=== PATIENT | male | born 1965 | race Caucasian/White ===

== ENCOUNTER → 2022-02-16 08:02 | Outpatient (BNVA) | payer OTHER, SELFPAY | PROVIDERS: Visit Provider Psychiatry & Neurology Neurology | DX: G44.309 Post-traumatic headache, unspecified, not intractable (principal); G47.00 Insomnia, unspecified; R42 Dizziness and giddiness; H93.19 Tinnitus, unspecified ear | CPT/HCPCS: 99202 ==

== ENCOUNTER → 2022-03-21 09:01 | Outpatient (BNVA) | payer OTHER, SELFPAY | PROVIDERS: Visit Provider Nurse Practitioner Family | DX: G47.00 Insomnia, unspecified (principal); G44.309 Post-traumatic headache, unspecified, not intractable; H93.19 Tinnitus, unspecified ear; R42 Dizziness and giddiness | CPT/HCPCS: 99212 ==

== ENCOUNTER → 2022-05-25 09:08 | Outpatient (BNVA) | payer OTHER, SELFPAY | PROVIDERS: Visit Provider Nurse Practitioner Family | DX: G44.309 Post-traumatic headache, unspecified, not intractable (principal); G47.00 Insomnia, unspecified; H93.19 Tinnitus, unspecified ear | CPT/HCPCS: 99212 ==

== ENCOUNTER → 2022-07-27 11:06 | Outpatient (BNVA) | payer OTHER, SELFPAY | PROVIDERS: Visit Provider Nurse Practitioner Family | DX: G47.00 Insomnia, unspecified (principal); H93.19 Tinnitus, unspecified ear; R42 Dizziness and giddiness; G44.309 Post-traumatic headache, unspecified, not intractable | CPT/HCPCS: 99212 ==

== ENCOUNTER → 2022-12-22 14:32 | Outpatient (BNVA) | payer OTHER, SELFPAY | PROVIDERS: Visit Provider Nurse Practitioner Family | DX: G47.00 Insomnia, unspecified (principal); G44.309 Post-traumatic headache, unspecified, not intractable; H93.19 Tinnitus, unspecified ear; R42 Dizziness and giddiness | CPT/HCPCS: 99212 ==

== ENCOUNTER → 2023-03-01 10:47 | Outpatient (BNVA) | payer OTHER, SELFPAY | PROVIDERS: Visit Provider Nurse Practitioner Family | DX: G44.309 Post-traumatic headache, unspecified, not intractable (principal); G47.00 Insomnia, unspecified; H93.19 Tinnitus, unspecified ear; R42 Dizziness and giddiness | CPT/HCPCS: 99212 ==

== ENCOUNTER 2023-05-18 11:26 | Outpatient (AMB) | payer OTHER, SELFPAY ==
--- NOTE | 2023-05-18 11:32 | MHC.OFFVIS ---
Intake Vital Signs 05/18/23 11:34 Weight 138 lb 4 oz BP 142/86 H Blood Pressure Location Lt brachial Position Sitting Pulse 80 Pulse Source Pulse Oximeter Pulse Oximetry (%) 98 Oxygen Delivery Method Room Air Intake Visit Reasons: 2 mo f/u for concussion - Confirmed Intake Note: F/U Concussion [employer] Required: No Allergies Sulfa (Sulfonamide Antibiotics) Allergy (Mild, Verified 05/18/23 11:33) Unknown HPI HPI Comments History of Present Illness Details 58 y/o male patient presents for follow up of post concussion syndrome. Pt reports his headache and insomnia has not been better. He sleeps a little bit longer with amitriptyline 75 mg but feels exhausted and tired all day long. He is on magnesium 400 mg qHS and vitamin B2 400 mg daily for headache prevention. Pt reports constant, daily headache, front to back, pounding headache, associated with light sensitivity and neck pain. He was evaluated by pain management and plans to have injection, but not approved yet. Pt is on baclofen 10 mg qHS for neck muscle tightness. Pt reduced OTC medication use to treat headache. 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 ? He does not work now. [facility], LAT[facility] Surgical History Hx of removal of cyst Family History Mother No problems noted. Father No problems noted. Social History (Updated 05/18/23 @ 11:34 by Deja Galloway [facility]) Household Members: Spouse Alcohol intake: never Patient Tobacco Use Status: Never used Tobacco Review of Systems Const All systems reviewed & are unremarkable except as noted in HPI and below Physical Exam Vital Signs: Last Vital Signs Pulse 80 05/18/23 11:34 BP 142/86 H 05/18/23 11:34 Pulse Ox 98 05/18/23 11:34 Oxygen Delivery Method Room Air 05/18/23 11:34 Const General: cooperative, healthy appearing, comfortable and no acute distress Nutritional Appearance: average body habitus Orientation/consciousness: patient oriented x3 Neck Other: mild tightness Neck: Yes full ROM Resp Effort & Inspection: normal respiratory effort and able to speak in complete sentences Neuro General: patient oriented x3, gait normal, tone normal, moves all extremities and no focal motor deficits Cranial nerves: Yes Bilaterally intact EOM present, Yes Nystagmus not present, Yes Normal facial strength present, Yes Midline tongue present, Yes Ability to bilaterally rotate head present and Yes Ability to bilaterally elevate shoulders present Cognition (Neuro): normal cognition Gait exam (Neuro): Normal gait present Deep tendon reflexes (DTR's): Right triceps reflex intensity grade: 1+, Left triceps reflex intensity grade: 1+, Rt Biceps (C5, C6): 1+, Left biceps reflex intensity grade: 1+, Right brachioradialis reflex intensity grade: 1+, Left brachioradialis reflex intensity grade: 1+, Right patellar reflex intensity grade: 1+ and Left patellar reflex intensity grade: 1+ Psych Appearance: grossly normal Speech and movement: Normal speech and movement present Assessment & Plan Assessment & Plan (1) Insomnia: Code(s): G47.00 - Insomnia, unspecified (2) Tinnitus: Code(s): H93.19 - Tinnitus, unspecified ear (3) Vertigo: Code(s): R42 - Dizziness and giddiness (4) Post-concussion headache: Code(s): G44.309 - Post-traumatic headache, unspecified, not intractable Plan Advised patient to continue to take baclofen 10 mg qHS for neck muscle tightness and pain. Decrease amitriptyline to 50 mg qHS for headache prevention and promote sleep. Advised patient to use melatonin 3 mg along with amitriptyline. Coneinue to take vitamin B2 400 mg q daily and magnesium 400 mg qHS. Start propranolol 10 mg BID for headache prevention and increase PO fluid. Encouraged patient to write headache log and limit OTC medication to prevent rebound headache. Advised patient to try sumatriptan 100 mg at onset of headache as needed. Continue to do physical therapy and tinnitus rehab. Continue to follow up with pain management. Disability, FMLA application filled out. Medications: New propranolol 10 mg PO BID 60 tabs 1RF 30 days amitriptyline 50 mg PO BEDTIME 30 tabs 1RF 30 days Changed From sumatriptan succinate take 1 tab at onset of headache; if no relief, may repeat 1 tab after at least 2 hrs; max = 2 tabs/24 hrs PO 30 days 14 tabs 1RF To sumatriptan succinate take 1 tab at onset of headache; if no relief, may repeat 1 tab after at least 2 hrs; max = 2 tabs/24 hrs PO 14 tabs 1RF 30 days Discontinued amitriptyline Discontinued Reason: Doctor's Order 75 mg PO BEDTIME 30 days 30 tabs 2RF Coding Level of Care Code Est Pt Level 4 (05048) Diagnoses Insomnia G47.00 Tinnitus H93.19 Vertigo R42 Post-concussion headache G44.309
[2023-05-18 11:34] VITALS: BP 142/86; PULSE 80; O2SAT 98
== END 2023-05-18 12:05 | disposition home or self-care (01) ==
PROVIDERS: Visit Provider Nurse Practitioner Family
DX: G47.00 Insomnia, unspecified (principal); H93.19 Tinnitus, unspecified ear; R42 Dizziness and giddiness; G44.309 Post-traumatic headache, unspecified, not intractable
CPT/HCPCS: 99214

== ENCOUNTER → 2023-05-18 11:26 | Outpatient (BNVA) | payer OTHER, SELFPAY | PROVIDERS: Visit Provider Nurse Practitioner Family | DX: G44.309 Post-traumatic headache, unspecified, not intractable (principal); G47.00 Insomnia, unspecified; H93.19 Tinnitus, unspecified ear; R42 Dizziness and giddiness; Z79.899 Other long term (current) drug therapy | CPT/HCPCS: 99212 ==

== ENCOUNTER 2023-07-12 15:32 | Outpatient (AMB) | payer OTHER, SELFPAY ==
--- NOTE | 2023-07-12 15:40 | A.OFFVIS_ITS ---
Intake Vital Signs 07/12/23 15:41 Height 5 ft 2 in Weight 141 lb 2 oz BMI 25.8 BP 176/82 H Blood Pressure Location Rt brachial Position Sitting Respiration 16 Pulse 101 H Pulse Source Pulse Oximeter Pulse Oximetry (%) 97 Oxygen Delivery Method Room Air Intake Visit Reasons: 2m follow up concussion Intake Note: Pt is here for a 2 month follow up for a concussion. He reports he is discouraged with the lack of improvement in symptoms. The dizziness and ringing of the ears have worsened. His headaches are more constant. He discontinued his HTN meds due to diarrhea. Denies nausea or vomiting. Allergies Sulfa (Sulfonamide Antibiotics) Allergy (Mild, Verified 07/12/23 15:40) Unknown HPI HPI Comments History of Present Illness Details 58 y/o male patient presents for follow up of post concussion syndrome. Pt reports his headache and insomnia has not been better. He can fall sleep a with amitriptyline 50 mg and melatonin 3 mg but still wakes up around 2 am and it is hard to go back to sleep. Pt reports constant, daily headache, front to back, pounding headache, associated with light sensitivity and neck pain. He usually getting bad headache mid day, and bright light triggers headache. He is on magnesium 400 mg qHS and vitamin B2 400 mg daily for headache prevention. He tried propranolol but it caused diarrhea and he stopped taking it. He was evaluated by pain management and plans to have injection, but it still pending. Pt is on baclofen 10 mg qHS for neck muscle tightness. Pt reduced OTC medication use to treat headache. 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 ? PFSH Surgical History Hx of removal of cyst Family History Mother No problems noted. Father No problems noted. Social History Household Members: Spouse Alcohol intake: never Patient Tobacco Use Status: Never used Tobacco Review of Systems Const All systems reviewed & are unremarkable except as noted in HPI and below Physical Exam Vital Signs: Last Vital Signs Pulse 101 H 07/12/23 15:41 Resp 16 07/12/23 15:41 BP 176/82 H 07/12/23 15:41 Pulse Ox 97 07/12/23 15:41 Oxygen Delivery Method Room Air 07/12/23 15:41 BMI result Body Mass Index 25.8 Const General: cooperative, healthy appearing, comfortable and no acute distress Nutritional Appearance: average body habitus Orientation/consciousness: patient oriented x3 Neck Other: mild tightness Neck: Yes full ROM Resp Effort & Inspection: normal respiratory effort and able to speak in complete sentences Neuro General: patient oriented x3, gait normal, tone normal, moves all extremities and no focal motor deficits Cranial nerves: Yes Bilaterally intact EOM present, Yes Nystagmus not present, Yes Normal facial strength present, Yes Midline tongue present, Yes Ability to bilaterally rotate head present and Yes Ability to bilaterally elevate shoulders present Cognition (Neuro): normal cognition Gait exam (Neuro): Normal gait present Deep tendon reflexes (DTR's): Right triceps reflex intensity grade: 1+, Left triceps reflex intensity grade: 1+, Rt Biceps (C5, C6): 1+, Left biceps reflex intensity grade: 1+, Right brachioradialis reflex intensity grade: 1+, Left brachioradialis reflex intensity grade: 1+, Right patellar reflex intensity grade: 1+ and Left patellar reflex intensity grade: 1+ Psych Appearance: grossly normal Speech and movement: Normal speech and movement present Assessment & Plan Assessment & Plan (1) Insomnia: Code(s): G47.00 - Insomnia, unspecified (2) Tinnitus: Code(s): H93.19 - Tinnitus, unspecified ear (3) Vertigo: Code(s): R42 - Dizziness and giddiness (4) Post-concussion headache: Code(s): G44.309 - Post-traumatic headache, unspecified, not intractable Plan Advised patient to continue to take baclofen 10 mg qHS for neck muscle tightness and pain. Continue amitriptyline to 50 mg qHS for headache prevention and promote sleep. Advised patient to use melatonin 3-6 mg along with amitriptyline. Coneinue to take vitamin B2 400 mg q daily and magnesium 400 mg qHS. Discontinue propranolol, pt had diarrhea with it. Advised patient to try topiramate 50 mg q HS. Continue use sumatriptan 100 mg at onset of headache as needed. Continue to do physical therapy and tinnitus rehab. Continue to follow up with pain management. Disability, FMLA application filled out. Medications: New topiramate 50 mg PO BEDTIME 30 tabs 2RF 30 days Coding Level of Care Code Est Pt Level 4 (84497) Diagnoses Insomnia G47.00 Tinnitus H93.19 Vertigo R42 Post-concussion headache G44.309
[2023-07-12 15:41] VITALS: BP 176/82; PULSE 101; RESP 16; O2SAT 97; BMI 25.8
== END 2023-07-12 16:12 | disposition home or self-care (01) ==
PROVIDERS: Visit Provider Nurse Practitioner Family
DX: G47.00 Insomnia, unspecified (principal); H93.19 Tinnitus, unspecified ear; R42 Dizziness and giddiness; G44.309 Post-traumatic headache, unspecified, not intractable
CPT/HCPCS: 99214

== ENCOUNTER → 2023-07-12 15:32 | Outpatient (BNVA) | payer OTHER, SELFPAY | PROVIDERS: Visit Provider Nurse Practitioner Family | DX: G47.00 Insomnia, unspecified (principal); H93.19 Tinnitus, unspecified ear; R42 Dizziness and giddiness; G44.309 Post-traumatic headache, unspecified, not intractable; Z79.899 Other long term (current) drug therapy | CPT/HCPCS: 99212 ==

== ENCOUNTER 2023-09-12 10:32 | Outpatient (AMB) | payer OTHER, SELFPAY ==
[2023-09-12 10:36] VITALS: BP 148/92; PULSE 95; O2SAT 97; BMI 26.2
--- NOTE | 2023-09-12 10:36 | A.OFFVIS_ITS ---
Intake Vital Signs 09/12/23 10:36 Height 5 ft 2 in Weight 143 lb 2 oz BMI 26.2 BP 148/92 H Blood Pressure Location Rt brachial Position Sitting Pulse 95 Pulse Source Pulse Oximeter Pulse Oximetry (%) 97 Oxygen Delivery Method Room Air Intake Visit Reasons: 2m f/u concussion - LVM Intake Note: Pt presents to the office today for a 2 month follow up for a concussion. Allergies Sulfa (Sulfonamide Antibiotics) Allergy (Mild, Verified 09/12/23 10:38) Unknown HPI HPI Comments History of Present Illness Details 58 y/o male patient presents for follow up of post concussion syndrome. Pt reports his headache and insomnia has not been better. He can fall sleep a with amitriptyline 50 mg and melatonin 3 mg but still wakes up every 2 hrs and it is hard to go back to sleep. He can't sleep well due to tinnitus. He also experiences short term memory loss. Pt reports constant, daily headache, front to back, pounding headache, associated with light sensitivity and neck pain. He usually getting bad headache mid day, and bright light triggers headache. He is on magnesium 400 mg, topiramate 50 mg qHS and vitamin B2 400 mg daily for headache prevention. He tried propranolol but it caused diarrhea and he stopped taking it. He was evaluated by pain management and plans to have injection, but it still pending. Pt is on baclofen 10 mg qHS for neck muscle tightness. Pt reduced OTC medication use to treat headache. 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 ? PFSH Surgical History Hx of removal of cyst Family History Mother No problems noted. Father No problems noted. Social History Household Members: Spouse Alcohol intake: never Patient Tobacco Use Status: Never used Tobacco Review of Systems Const All systems reviewed & are unremarkable except as noted in HPI and below Physical Exam Vital Signs: Last Vital Signs Pulse 95 09/12/23 10:36 BP 148/92 H 09/12/23 10:36 Pulse Ox 97 09/12/23 10:36 Oxygen Delivery Method Room Air 09/12/23 10:36 BMI result Body Mass Index 26.2 Const General: cooperative, healthy appearing, comfortable and no acute distress Nutritional Appearance: average body habitus Orientation/consciousness: patient oriented x3 Neck Other: mild tightness Neck: Yes full ROM Resp Effort & Inspection: normal respiratory effort and able to speak in complete sentences Neuro General: patient oriented x3, gait normal, tone normal, moves all extremities and no focal motor deficits Cranial nerves: Yes Bilaterally intact EOM present, Yes Nystagmus not present, Yes Normal facial strength present, Yes Midline tongue present, Yes Ability to bilaterally rotate head present and Yes Ability to bilaterally elevate shoulders present Cognition (Neuro): normal cognition Gait exam (Neuro): Normal gait present Deep tendon reflexes (DTR's): Right triceps reflex intensity grade: 1+, Left triceps reflex intensity grade: 1+, Rt Biceps (C5, C6): 1+, Left biceps reflex intensity grade: 1+, Right brachioradialis reflex intensity grade: 1+, Left brachioradialis reflex intensity grade: 1+, Right patellar reflex intensity grade: 1+ and Left patellar reflex intensity grade: 1+ Psych Appearance: grossly normal Speech and movement: Normal speech and movement present Assessment & Plan Assessment & Plan (1) Insomnia: Code(s): G47.00 - Insomnia, unspecified (2) Tinnitus: Code(s): H93.19 - Tinnitus, unspecified ear (3) Vertigo: Code(s): R42 - Dizziness and giddiness (4) Post-concussion headache: Code(s): G44.309 - Post-traumatic headache, unspecified, not intractable Plan Advised patient to continue to take baclofen 10 mg qHS for neck muscle tightness and pain. Increase amitriptyline to 75 mg qHS for headache prevention and promote sleep. Advised patient to use melatonin 3-6 mg along with amitriptyline. Coneinue to take vitamin B2 400 mg q daily and magnesium 400 mg qHS. Continue to take topiramate 50 mg q HS. Will try Botox injection for migraine prevention. Continue use sumatriptan 100 mg at onset of headache as needed. Continue to follow up with pain management. Medications: New amitriptyline Take amitriptyline 25 mg along with 50 mg qHS. The total dosage will be 75mg qHS. 25 mg PO BEDTIME 30 tabs 3RF 30 days onabotulinumtoxinA (Botox) Inject 155 units IM across over forehead, scalp and neck. 200 units IM ONCE 90 days 1 ea 4RF onabotulinumtoxinA (Botox) Inject 155 units IM across over forehead, scalp and neck. 200 units IM ONCE 90 days 1 ea 4RF onabotulinumtoxinA (Botox) Inject 155 units IM across over forehead, scalp and neck. 200 units IM ONCE 1 ea 4RF 90 days Refilled riboflavin (vitamin B2) 400 mg PO DAILY 30 tabs 6RF 30 days amitriptyline 50 mg PO BEDTIME 30 tabs 1RF 30 days baclofen 10 mg PO BEDTIME 30 tabs 2RF 30 days topiramate 50 mg PO BEDTIME 30 tabs 2RF 30 days Coding Level of Care Code Est Pt Level 4 (28178) Diagnoses Insomnia G47.00 Tinnitus H93.19 Vertigo R42 Post-concussion headache G44.309
== END 2023-09-12 11:11 | disposition home or self-care (01) ==
PROVIDERS: Visit Provider Nurse Practitioner Family
DX: G47.00 Insomnia, unspecified (principal); H93.19 Tinnitus, unspecified ear; R42 Dizziness and giddiness; G44.309 Post-traumatic headache, unspecified, not intractable
CPT/HCPCS: 99214

== ENCOUNTER → 2023-09-12 10:32 | Outpatient (BNVA) | payer OTHER, SELFPAY | PROVIDERS: Visit Provider Nurse Practitioner Family | DX: G47.00 Insomnia, unspecified (principal); H93.19 Tinnitus, unspecified ear; R42 Dizziness and giddiness; G44.309 Post-traumatic headache, unspecified, not intractable; G43.709 Chronic migraine without aura, not intractable, without status migrainosus | CPT/HCPCS: 99212 ==

== ENCOUNTER 2024-05-24 15:30 | Outpatient (AMB) | payer OTHER, SELFPAY ==
[2024-05-24 15:31] VITALS: BP 150/100; PULSE 74; O2SAT 98; BMI 25.6
--- NOTE | 2024-05-24 15:31 | A.OFFVIS_ITS ---
Vital Signs 05/24/24 15:31 Height 5 ft 2 in Weight 140 lb BMI 25.6 BP 150/100 H Blood Pressure Location Rt brachial Position Sitting Pulse 74 Pulse Source Pulse Oximeter Pulse Oximetry (%) 98 Oxygen Delivery Method Room Air Intake Visit Reasons: WC-4 mo f/u -Concussion Intake Note: Patient presents for 4 month follow up concussion. patient still having sleepless night,ringing in ears and headaches nothing has changed Allergies Sulfa (Sulfonamide Antibiotics) Allergy (Mild, Verified 05/24/24 15:34) Unknown Medication List - Last Reconciled 05/24/24 by FABIÁN Ace amitriptyline 25 mg PO BEDTIME 30 days amitriptyline 50 mg PO BEDTIME 30 days baclofen 10 mg PO BEDTIME 30 days magnesium oxide 400 mg PO BEDTIME melatonin 3 mg PO BEDTIME 30 days onabotulinumtoxinA (Botox) 200 units IM ONCE 90 days riboflavin (vitamin B2) 400 mg PO DAILY 30 days sumatriptan succinate take 1 tab at onset of headache; if no relief, may repeat 1 tab after at least 2 hrs; max = 2 tabs/24 hrs PO 30 days topiramate 50 mg PO BEDTIME 30 days HPI Comments Details: 59-yr-old male presents for f/u visit of work-related postconccusive syndrome. Pt denies any significant interval medical changes. Pt reports he has constant pressure holocranial headache a/w photophobia, nausea, ringing in the ear. If he bends over, and gets up quickly, he has not right in space dizziness. Continues to have neck stiffness, makes it difficult to turn his head left or right when driving his own vehicle. He is no longer seeing pain management. He is doing the PT exercises at home. He continues to have poor fragmented sleep, sleeps 2 hrs on and off, and then is exhausted throughout the day. He has not returned to work. He was working for the [employer] for the [employer]. [facility] Surgical History Hx of removal of cyst Family History Mother No problems noted. Father No problems noted. Social History Household Members: Spouse Alcohol intake: never Patient Tobacco Use Status: Never used Tobacco Physical Exam Vital Signs: Last Vital Signs Pulse 74 05/24/24 15:31 BP 150/100 H 05/24/24 15:31 Pulse Ox 98 05/24/24 15:31 Oxygen Delivery Method Room Air 05/24/24 15:31 BMI result Body Mass Index 25.6 Const General: cooperative and no acute distress Orientation/consciousness: patient oriented x3 Resp Effort & Inspection: normal respiratory effort and able to speak in complete sentences Neuro Other: bilateral posterior cervical tightness and limited ROM. General: patient oriented x3 Cranial nerves: Yes CN's II-XII intact bilaterally Cognition (Neuro): normal cognition Psych Appearance: grossly normal Mental Status: mental status grossly normal Speech and movement: Normal speech and movement present Affect: normal affect Attitude: cooperative Assessment & Plan Assessment & Plan (1) Post-concussion headache: Code(s): G44.309 - Post-traumatic headache, unspecified, not intractable Category: Medical (2) Vertigo: Code(s): R42 - Dizziness and giddiness Category: Medical (3) Migraine without aura: Code(s): G43.009 - Migraine without aura, not intractable, without status migrainosus Category: Medical Plan For postconcussive migraine headache prevention: Continue Vitamin B2 400mg qam Continue Amitriptyline 75mg qhs- for sleep as well, has dry mouth. Increase Topiramate from 50mg qhs to 50mg bid. Continue Magnesium 400mg qhs. For neck tightness: Continue PT exercises. Heat packs- 20 minutes prn. Gentle yoga. 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 Medications: New magnesium oxide may hold for loose stools 400 mg PO BEDTIME 30 tabs 6RF 30 days Changed From amitriptyline Take amitriptyline 25 mg along with 50 mg qHS. The total dosage will be 75mg qHS. 25 mg PO BEDTIME 30 days 30 tabs 3RF To amitriptyline 75 mg (3 x 25 mg) PO BEDTIME 90 tabs 6RF 30 days From topiramate 50 mg PO BEDTIME 30 days 30 tabs 4RF To topiramate 50 mg PO BID 60 tabs 6RF 30 days Refilled riboflavin (vitamin B2) 400 mg PO DAILY 30 tabs 6RF 30 days sumatriptan succinate take 1 tab at onset of headache; if no relief, may repeat 1 tab after at least 2 hrs; max = 2 tabs/24 hrs PO 14 tabs 6RF 30 days Discontinued magnesium oxide Discontinued Reason: Ancillary Entered New Order 400 mg PO BEDTIME 30 caps 6RF amitriptyline Discontinued Reason: Doctor's Order 50 mg PO BEDTIME 30 days 30 tabs 3RF Coding Level of Care Code Est Pt Level 4 (63324) Diagnoses Post-concussion headache G44.309 Vertigo R42 Migraine without aura G43.009
== END 2024-05-24 16:25 | disposition home or self-care (01) ==
PROVIDERS: Absent Provider Nurse Practitioner Family; Visit Provider Nurse Practitioner Family
DX: G44.309 Post-traumatic headache, unspecified, not intractable (principal); R42 Dizziness and giddiness; G43.009 Migraine without aura, not intractable, without status migrainosus
CPT/HCPCS: 99214

== ENCOUNTER → 2024-05-24 15:30 | Outpatient (BNVA) | payer OTHER, SELFPAY | PROVIDERS: Absent Provider Nurse Practitioner Family; Visit Provider Nurse Practitioner Family | DX: G44.309 Post-traumatic headache, unspecified, not intractable (principal); G43.009 Migraine without aura, not intractable, without status migrainosus; R42 Dizziness and giddiness; Z79.899 Other long term (current) drug therapy | CPT/HCPCS: 99212 ==

== ENCOUNTER 2024-12-03 15:00 | Outpatient (AMB) | payer OTHER, SELFPAY ==
--- NOTE | 2024-12-03 15:15 | A.OFFVIS_ITS ---
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 Accompanied by: Self / Same As Patient Allergies Sulfa (Sulfonamide Antibiotics) Allergy (Mild, Verified 12/03/24 15:16) Unknown Medication List - Last Reconciled 12/03/24 by FABIÁN Ace amitriptyline 75 mg (3 x 25 mg) PO BEDTIME 30 days baclofen 10 mg PO BEDTIME 30 days magnesium oxide 400 mg PO BEDTIME 30 days melatonin 3 mg PO BEDTIME 30 days onabotulinumtoxinA (Botox) 200 units IM ONCE 90 days riboflavin (vitamin B2) 400 mg PO DAILY 30 days sumatriptan succinate take 1 tab at onset of headache; if no relief, may repeat 1 tab after at least 2 hrs; max = 2 tabs/24 hrs PO 30 days topiramate 50 mg PO BID 30 days HPI Comments Details: 59-yr-old male presents for f/u visit of work-related postconccusive syndrome. Pt denies any significant interval medical changes. Pt reports he has constant pressure holocranial headache a/w photophobia, nausea, ringing in the ear. If he bends over and gets up quickly or stands quickly, he has not right in space dizziness. His blood pressure is again elevated 140/100. He states his blood pressure at home in the morning is normotensive. Continues to have neck stiffness, which makes it difficult to turn his head left or right when driving his own vehicle. He has nonradiating a left greater than right neck pain upon cervical extension. He is curious about previous C-spine imaging, which showed mild multilevel disc bulging, and notable C5-C6 neuroforaminal stenosis. He is no longer seeing pain management. He is doing the PT exercises at home. He continues to have poor fragmented sleep, sleeps 2 hrs on and off, and then is exhausted throughout the day. He has not returned to work- states he was let go from his position. He was working for the [employer] for the [employer]. [facility] Surgical History Hx of removal of cyst Family History Mother No problems noted. Father No problems noted. Social History Household Members: Spouse Alcohol intake: never Patient Tobacco Use Status: Never used Tobacco Physical Exam Vital Signs: Last Vital Signs Pulse 93 12/03/24 15:16 BP 140/100 H 12/03/24 15:16 Pulse Ox 96 12/03/24 15:16 Oxygen Delivery Method Room Air 12/03/24 15:16 BMI result Body Mass Index 25.1 Const General: cooperative and no acute distress Orientation/consciousness: patient oriented x3 Resp Effort & Inspection: normal respiratory effort and able to speak in complete sentences Neuro Other: Bilateral posterior paraspinal cervical and right SCM tightness. Spurling elicits left lower neck pain. Limited cervical ROM. DTRs 1+ throughout General: patient oriented x3 Cranial nerves: Yes CN's II-XII intact bilaterally Cognition (Neuro): normal cognition Motor exam (neuro): 5/5 motor strength present throughout Psych Appearance: grossly normal Mental Status: mental status grossly normal Speech and movement: Normal speech and movement present Affect: normal affect Attitude: cooperative Assessment & Plan Assessment & Plan (1) Post-concussion headache: Comment: status-post work related head injury on Aug 31 2021. Code(s): G44.309 - Post-traumatic headache, unspecified, not intractable Category: Medical (2) Migraine without aura: Comment: post-concussive Code(s): G43.009 - Migraine without aura, not intractable, without status migrainosus Category: Medical (3) Vertigo: Code(s): R42 - Dizziness and giddiness Category: Medical Plan For postconcussive migraine headache prevention: Continue Vitamin B2 400mg daily in the morning. Continue Magnesium 400mg daily at bedtime. Continue Amitriptyline 75mg daily at bedtime- for sleep as well, has dry mouth. Wean off of Topiramate- decrease dose by 25mg q week and then stop completely- as not effective. Start Propranolol ER 60mg daily at bedtime, may help BP control as well. Potential side effects include but are not limited to fatigue, lightheadedness, low blood pressure, low heart rate, asthma/respiratory disease exacerbation, weight gain, hair loss, sexual dysfunction. For acute treatment of post-concussive migraine treatment: Continue Sumatriptan 100mg tab, 1/2 - 1 tab (50-100mg) at onset of migraine headache, may repeat in 2 hours. Max of 2 tabs (200mg) per 24 hours. May take sumatriptan with OTC Tylenol 650-1,000mg every 4-6 hours, Ibuprofen (liquid gels) 600mg every 6 hours, or Naproxen (liquid gels) 440mg q 12 hrs prn. For neck tightness: Patient continues to have cervical neck pain and stiffness which limited cervical range of motion and functional activities of daily living, without focal neurological deficits. Continue Baclofen 10mg daily at bedtime. Continue home PT exercises. Heat packs- 20 minutes prn. Futire considerations: c-spine imaging w/ flexion and extension. For postconcussive dizziness: Advised stand slowly. Drink fluids liberally, including 1-2 servings of electrolyte replacement beverages. Goal is at least 64 oz per day. 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 f/u in 6 months or sooner as needed. Medications: New propranolol ER 60 mg PO BEDTIME 30 days 30 caps 6RF G43.009 - Migraine without aura, not intractable, without status migrainosus, G44.309 - Post-traumatic headache, unspecified, not intractable Changed From melatonin 3 mg PO BEDTIME 30 days 30 tabs 6RF To melatonin in the evening 3 mg PO DAILY 30 days 30 tabs 6RF Refilled sumatriptan succinate take 1 tab at onset of headache; if no relief, may repeat 1 tab after at least 2 hrs; max = 2 tabs/24 hrs PO 30 days 12 tabs 6RF Discontinued topiramate Discontinued Reason: Doctor's Order 50 mg PO BID 30 days 60 tabs 6RF Coding Level of Care Code Est Pt Level 4 (41071) Diagnoses Post-concussion headache G44.309 Migraine without aura G43.009 Vertigo R42
[2024-12-03 15:16] VITALS: BP 140/100; PULSE 93; O2SAT 96; BMI 25.1
--- OUTSIDE RECORDS SUMMARY | 2024-12-03 18:19 | XMS_ITS | Clinical Summary ---
Author Organization [facility] [address] [place] [address] [place] [phone] Phone Care Team Providers Care Lead Pastor Name Role Phone Pierre Doherty MD Primary Care Provider [phone] Allergies Active Allergy Reactions Criticality Noted Date Comments Sulfacetamide Sodium 11/03/2005 Other Reaction(s): OTHER told by his mother he was allergic to sulfa Medications oxyCODONE-acet aminophen (PERCOCET) 5-325 mg per tablet Take 1 tablet by mouth 2 (two) times a day. Max Daily Amount: 2 tablets 56 tablet 11/18/19 25 Active terbinafine (LamISIL) 250 mg tablet Take 1 tablet (250 mg total) by mouth 1 (one) time each day. 11/06/19 24 025 Discontinued econazole nitrate 1 % cream Apply thin layer to feet twice daily for 4-6 weeks 11/06/19 24 025 Discontinued pantoprazole (PROTONIX) 40 mg EC tablet Take 1 tablet (40 mg total) by mouth. 03/29/20 24 025 Discontinued oxyCODONE-acet aminophen (PERCOCET) 5-325 mg per tablet Take 1 tablet by mouth 2 (two) times a day. Max Daily Amount: 2 tablets 56 tablet 10/21/19 25 025 Discontinued(Re order) Active Problems Problem Noted Date Diagnosed Date Knee pain 06/03/2008 Overview (11/16/2023): WC related injury in November 2006. Eosinophilic esophagitis 06/14/2007 Overview (11/16/2023): EGD + BX 06/01/2007. 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 11/30/2005 Overview (11/16/2023): IMO update Encounters Date Type Department Care Team Description 12/03/2024 8:40 AM EDT Office Visit Gastroenterology - [address] [place] [address] Iggy Cole, PA Eosinophilic esophagitis (Primary Dx); Dysphagia, unspecified type 11/12/2024 8:00 AM EST Office Visit Adult Medicine [address] [phone] Pierre Doherty MD Chronic pain of left knee (Primary Dx); Elevated LDL cholesterol level; Dysphagia, unspecified type; Chronic cough from Last 3 Months Surgical History Surgery Date Site/Laterality Comments TONSILLECTOMY PROCEDURE: HISTORICAL TONSILLECTOMY ESOPHAGOGASTRODUODENOSCOPY 05/31/2007 PROCEDURE: ND EGD TRANSORAL BIOPSY SINGLE/MULTIPLE; COMMENT: eosiniphilic esophagitis. 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 Knee pain 06/03/2008 DX:Knee pain; CO MMENT: WC related injury in November 2006. Colon polyp DX:Colon polyp Dysphagia DX:Dysphagia Cough DX:Cough Family History Medical History Relation Name Comments Other: congenital heart disease Father Other: tuberculosis Father Other: Other Mother heart problem Relation Name Status Comments Father Mother Social History Tobacco Use Types Packs/Day Years Used Date Smoking Tobacco: Never Smokeless Tobacco: Never Tobacco Cessation:Counseling Given: Not Answered Alcohol Use Standard Drinks/Week Comments No 0 (1 standard drink = 0.6 oz pur e alcohol) Sex and Gender Information Value Date Recorded Sex Assigned at Not on file Legal Sex Male 10:27 PM EST Gender Identity Not on file Sexual Orientation Not on file Obstetrics History Last Filed Vital Signs Vital Sign Reading Time Taken Comments Blood Pressure 140/78 12/03/2024 8:53 AM EDT Pulse 90 12/03/2024 8:53 AM EDT Temperature 36.8 ??C (98.2 ??F) 11/12/2024 8:10 AM ES T Respiratory Rate 14 11/12/2024 8:10 AM EST Oxygen Saturation - - Inhaled Oxygen Concentration - - Weight 62.1 kg (137 lb) 12/03/2024 8:53 AM EDT Height 157.5 cm (5' 2 ) 12/03/2024 8:53 AM EDT Body Mass Index 25.06 12/03/2024 8:53 AM EDT Plan of Treatment Upcoming Encounters Date Type Department Care Team (Late st Contact Info) Description 12/31/2024 2:30 PM EDT Ancillary Procedure Pulmonolgy - [place] [address] [facility] [address] [place] [address] Mariella Rosenberg 02/18/2025 8:00 AM EDT Office Visit Adult Medicine [address] [phone] Katarzyna Oliver PA [address] [place] [address] Health Maintenance Due Date Last Done Comments DTaP,Tdap,and Td Vaccines (1 - Tdap) 1984 Hepatitis B Vaccines (1 of 3 - 19+ 3-dose series) 1984 Pneumococcal Vaccine: 50+ Years (1 of 1 - PCV) 2015 Zoster Vaccines (1 of 2) 2015 Colorectal Cancer Screening: Colonoscopy 09/03/2022 HIV Screening 09/03/2022 Social Influencers of Health Screening 09/03/2022 Depression Screening 03/08/2024 03/08/2023 COVID-19 Vaccine (1 - 2023-2 5 season) 2024 Influenza Vaccine (#1) 2024 Cholesterol Screening (Lipid Panel) 03/26/2029 03/26/2024, 06/12/2023 RSV Immunization Patients 60 + Years Old (1 - 1-dose 75+ series) 2040 Hepatitis C Screening Completed 10/12/2018 HIB Vaccines Aged Out No longer eligi ble based on patient's age to complete this topic HPV Vaccines Aged Out No longer eligi ble based on patient's age to complete this topic Hepatitis A Vaccines Aged Out No long er eligible based on patient's age to complete this topic IPV Vaccines Aged Out No longer eligi ble based on patient's age to complete this topic MMR Vaccines Aged Out No longer eligi ble based on patient's age to complete this topic Meningococcal ACWY Vaccine Aged Out N o longer eligible based on patient's age to complete this topic Meningococcal B Vacine Aged Out No lo nger eligible based on patient's age to complete this topic Pneumococcal Vaccine: Pediatrics (0 to 5 Years) and At-Risk Patients (6 to 64 Years) Aged Out No longer eligible b ased on patient's age to complete this topic RSV Immunization Patients Under 20 months Aged Out No longer eligible b ased on patient's age to complete this topic Varicella Vaccines Aged Out No longer eligible based on patient's age to complete this topic Procedures Procedure Name Priority Date/Time Associated Diagnosis Comments LIPID PANEL Routine 06/12/2023 HM HEPATITIS C SCREENING Routine 10/12/2018 from Last 3 Months or Most Recently Relevant to Health Maintenance Results * Lipid panel (06/12/2023) LDL/HDL Ratio 4 Triglycerides 49 mg/dL Cholesterol 207 mg/dL HDL 54 mg/dL LDL Cholesterol 144 mg/dL Blood Venous blood specimen / Unknown Historical Provider LAB BLOOD ORDERABLES Candice l Result * Hepatitis C Screening (10/12/2018) Hepatitis C Screening REFUSED Historical Provider HEALTH MAINTENANCE Final Result from Last 3 Months or Most Recently Relevant to Health Maintenance Insurance PLAN Care Teams Lead Pastor Relationship Specialty Start Date End Date Pierre Doherty MD [address] [place] [id number] PCP - General Internal Medicine 04/14/20
--- OUTSIDE RECORDS SUMMARY | 2024-12-03 18:19 | XMS_ITS | Encounter Summary ---
Author Organization [facility] Address [address] [place] [address] Care Team Providers Care Home Care Provider Name Role Phone Pierre Doherty MD Primary Care Provider [phone] Reason for Referral * Therapy (Routine) - Pending Review Specialty Diagnoses / Procedures Referred By Latrice bedoya Referred To Contact Pulmonology Diagnoses Chronic cough Procedures Pulmonary function testing: Spirometry with Bronchodilator, Flow Volume Loop Pierre Doherty MD [address] [place] [phone] Phone: tel: fax: Pulmonolgy [address] [address] Phone: tel: fax: Referral ID Status Reason Start Date Expiration Date V isits Requested Visits Authorized [id number] Pending Review 11/12/2024 11/12/2025 1 1 * Consultation (Routine) - Authorized Specialty Diagnoses / Procedures Referred By Latrice bedoya Referred To Contact Gastroenterology Diagnoses Dysphagia, unspecified type Pierre Doherty MD [address] [place] [id number] Phone: tel: fax: Gastroenterology [address] [address] Phone: tel: fax: Referral ID Status Reason Start Date Expiration Date Visits Requested Visits Authorized [id number] Authorized Specialty Services Required 11/12/2024 11/12/2025 1 1 Reason for Visit * Reason Comments Knee Pain Chronic (L) knee dyana n Encounter Details Date Type Department Care Team (Late st Contact Info) Description 11/12/2024 8:00 AM EST Office Visit Adult Medicine [facility] [address] [place] [phone] Pierre Doherty MD [address] [place] [phone] Chronic pain of left knee (Primary Dx); Elevated LDL cholesterol level; Dysphagia, unspecified type; Chronic cough Social History Tobacco Use Types Packs/Day Years [...] on file Sexual Orientation Not on file documented as of this encounter Last Filed Vital Signs Vital Sign Reading Time Taken Comments Blood Pressure 130/80 11/12/2024 8:10 AM EST Pulse 88 11/12/2024 8:10 AM EST Temperature 36.8 ??C (98.2 ??F) 11/12/2024 8:10 AM ES T Respiratory Rate 14 11/12/2024 8:10 AM EST Oxygen Saturation - - Inhaled Oxygen Concentration - - Weight 64.4 kg (142 lb) 11/12/2024 8:10 AM EST Height - - Body Mass Index 25.97 07/12/2024 11:45 AM EDT documented in this encounter Progress Notes * Pierre Doherty MD - 11/12/2024 8:00 AM EST CHIEF COMPLAINT: Knee Pain (Chronic (L) knee pain) IDENTIFIER: Indra Sandra is a 59 y.o. old male. HPI: Pt with chronic left knee pain as result of a workman;s comp issue pt had crush injury with stream roller aprox [id number] Pt is on controlled substance contract for pain management. Pt is on roxicet bid 5/325 Pt notes pain remains tolerable Pt pain is 5/10 stable from last check Pt with gerd pt off ppi pt notes was not helpful. Pt notes heartburn once weekly. Pt has dysphagia with both solids and water. Pt has notes has been present 5 years pt notes worsening. Pt continues with dry cough Normal chest xray 06/2024 Pt is a life long non-smoker Pt has seen gi last was 03/2025 Had a barium swallow and then an EGd at at that time was noted to have eosinophilic esophagitis. Ldl 139 03/2024 ROS: GENERAL: Negative for malaise, significant weight loss and fever RESPIRATORY: No cough, wheezing or shortness of breath CARDIOVASCULAR: Negative for chest pain, leg swelling and palpitations GI: See HPI PAST MEDICAL HISTORY: Patient Active Problem List Diagnosis Date Noted Knee pain 06/03/2008 Eosinophilic esophagitis 06/14/2007 Dermatophytosis of nail 11/30/2005 Herpes simplex virus (HSV) infection 11/30/2005 Nonspecific reaction to tuberculin skin test without active tuberculosis 11/30/2005 SOCIAL HISTORY: Social History Tobacco Use Smoking status: Never Smokeless tobacco: Never Substance Use Topics Alcohol use: No FAMILY HISTORY: Family Status Relation Name Status Mother Father No partnership data on file Family History Problem Relation Name Age of Onset Other (Other: Other) Mother heart problem Other (Other: congenital heart disease) Father Other (Other: tuberculosis) Father ACTIVE MEDICATIONS: No outpatient medications have been marked as taking for the 11/12/24 encounter (Office Visit) with Pierre Doherty MD. ALLERGIES: Sulfacetamide sodium PHYSICAL EXAM: Blood pressure 130/80, pulse 88, temperature 36.8 ??C (98.2 ??F), temperature source Oral, resp. rate 14, weight 64.4 kg (142 lb). There is no height or weight on file to calculate BMI. Plan is deferred until next visit APPEARANCE: Alert and in no acute distress EYES: PERRLA, conjunctiva and sclera normal HEART: RRR with normal S1 and S2, no murmurs, no gallops, no JVD appreciated LUNG: clear to auscultation bilaterally EXTREMITIES: Extremities warm and well perfused without clubbing, cyanosis, or edema LABS: Ldl 139 03/2024 IMPRESSION: 1. Chronic pain of left knee 2. Elevated LDL cholesterol level 3. Dysphagia, unspecified type 4. Chronic cough PLAN: Pt with chronic knee pain 2nd to workers comp injury mid pt pain has been tolerable on current pain regimen of roxicet 5/325 bid. This will be continued as per [facility] Pt with ? Gerd dry cough dysphagia ,egd has showen eosinophilic esophagitis ppi has not lindsay helpfulwill refer back to gastro ? Benefit of swallowing and inhaled corticosteroid. ? If cough is relatedto his gi issues pt has had (-) cxr I will order pfts to r/o and obstructive process Pt with elevated ldl will repeat lipids will calculate ascvd risk if > 7.5% would recommend statin therapy Pt to f/u in 3 months as per [facility] No orders of the defined types were placed in this encounter. ADDITIONAL ORDERS: None Pierre Doherty MD on 11/12/2024 at 7:16 AM EST documented in this encounter Plan of Treatment Upcoming Encounters Date Type Department Care Team (Late st Contact Info) Description 12/31/2024 2:30 PM EDT Ancillary Procedure Pulmonolgy - [address] [place] [id number] Mariella Rosenberg 02/18/2025 8:00 AM EDT Office Visit Adult Medicine [address] [phone] Katarzyna Oliver PA [address] [place] [phone] Scheduled Orders Name Type Priority Associated Diagnoses Orde r Schedule Lipid panel with reflex to direct LDL Lab Routine Elevated LDL cholesterol level 1 Occurrences starting 11/12/2024 until 11/12/2025 Pulmonary function testing: Spirometry with Bronchodilator, Flow Volume Loop PFT Routine Chronic cough Ordered: 11/12/2024 Scheduled Referrals Name Type Priority Associated Diagnoses Order Schedule Ambulatory referral to Gastroenterology Outpatient Referral Routine Dysphagia, unspecified type 1 Occurrences starting 11/12/2024 until 11/12/2025 documented as of this encounter Visit Diagnoses Diagnosis Chronic pain of left knee- Primary Elevated LDL cholesterol level Dysphagia, unspecified type Chronic cough Cough documented in this encounter Care Teams Home Care Provider Relationship Specialty Start Date End Date Pierre Doherty MD [address] [place] [phone] PCP - General Internal Medicine 04/14/20 documented as of this encounter
--- OUTSIDE RECORDS SUMMARY | 2024-12-03 18:19 | XMS_ITS | Encounter Summary ---
Author Organization [facility] Address [address] [place] [address] Care Team Providers Care Accounting Office Manager Name Role Phone Pierre Doherty MD Primary Care Provider [phone] Reason for Referral * Imaging (Routine) - Pending Review Specialty Diagnoses / Procedures Referred By Latrice bedoya Referred To Contact Radiology Diagnoses Dysphagia, unspecified type Eosinophilic esophagitis Procedures XR Esophagram Iggy Cole PA [address] [address] Phone: tel: fax: [address] [address] Phone: tel: Referral ID Status Reason Start Date Expiration Date V isits Requested Visits Authorized [id number] Pending Review 12/03/2024 12/03/2025 1 1 Reason for Visit * Reason Comments Dysphagia * Consultation (Routine) - Authorized Specialty Diagnoses / Procedures Referred By Latrice bedoya Referred To Contact Gastroenterology Diagnoses Dysphagia, unspecified type Pierre Doherty MD [address] [place] [address] Phone: tel: fax: Gastroenterology - [place] [address] [address] Phone: tel: fax: Referral ID Status Reason Start Date Expiration Date Visits Requested Visits Authorized [id number] Authorized Specialty Services Required 11/12/2024 11/12/2025 1 1 Encounter Details Date Type Department Care Team (Latest Contact Info) Description 12/03/2024 8:40 AM EDT Office Visit Gastroenterology - [place] [address] [place] [id number] Iggy Cole PA [address] [place] [address] Eosinophilic esophagitis (Primary Dx); Dysphagia, unspecified type Social History Tobacco Use Types Packs/Day Years Used Date Smoking Tobacco: Never Smokeless Tobacco: Never Alcohol Use Standard Drinks/Week Comments No 0 [...] Pulse 90 12/03/2024 8:53 AM EDT Temperature - - Respiratory Rate - - Oxygen Saturation - - Inhaled Oxygen Concentration - - Weight 62.1 kg (137 lb) 12/03/2024 8:53 AM EDT Height 157.5 cm (5' 2 ) 12/03/2024 8:53 AM EDT Body Mass Index 25.06 12/03/2024 8:53 AM EDT documented in this encounter Patient Instructions * Attachments The following attachments cannot be sent through Care Everywhere. * Dysphagia Diet: General Info (Vietnamese) * Dysphagia: General Info (Vietnamese) * Swallowing: Exercises (Vietnamese) * VFSS: Videofluorographic Swallowing Study (Vietnamese) * Eosinophilic Esophagitis (Vietnamese) * Esophagitis (Vietnamese) * Cough (Vietnamese) documented in this encounter Progress Notes * RONAN Valero - 12/03/2024 8:40 AM EDT Patient seen in follow up for issues of dysphagia and cough. Patient states that he has had issues with swallowing for a number of years. Has seen ENT in the past, had a fiberoptic scope that gave noexplanation for his sxs. Patient has tried ppi as he has had the EOE in the past as well as the persistent cough but has not found any relief from the heartburn. Patient is also having issues more frequently with food stuck in mid esophagus and needed to vomit the food up to be able to breath. Patient is to be scheduled for a barium swallow for further evaluation and if sxs continue then an EGD should be considered. Patient is also following up with pulmonology for the persistent dry cough. * RONAN Valero - 12/03/2024 8:40 AM EDT DENTIFIER: Indra Sandra is a 59 y.o. old male who presents to the gastroenterology department today for re-evaluation of dysphagia and cough. HPI: 59-year-old gentleman een in follow up for issues of dysphagia and cough. Patient states that he has had issues with swallowing for a number of years. Patient was last seen in March 2024 for dysphagia as well as GERD. Patient has seen ENT in the past, had a fiberoptic scope that gave no explanation for his sxs of the dry cough. Patient has tried ppi as he has had the EOE in the past as well as the persistent cough but has notfound any relief from the heartburn. Patient is also having issues more frequently with food stuck in mid esophagus and needs to vomit the food up to be able to breath. Patient is to be scheduled fora barium swallow for further evaluation and if sxs continue then an EGD should be considered. Patient is also following up with pulmonology for the persistent dry cough. ROS: GENERAL: No malaise, significant weight loss or fever HEENT: No changes in hearing or vision, nose bleeds or swallowing problems NECK: No lumps, goiter, pain or significant neck swelling RESPIRATORY: No cough, wheezing or shortness of breath, positive for dry cough CARDIOVASCULAR: No chest pain, leg swelling or palpitations GI: Positive for dysphagia and dry cough MUSCULOSKELETAL: No joint pain or swelling, back pain, or muscle pain. SKIN: No lesions, rash or itching The remainder of the review of systems is reviewed and negative. PAST MEDICAL HISTORY: Patient Active Problem List Diagnosis Date Noted Knee pain 06/03/2008 Eosinophilic esophagitis 06/14/2007 Dermatophytosis of nail 11/30/2005 Herpes simplex virus (HSV) infection 11/30/2005 Nonspecific reaction to tuberculin skin test without active tuberculosis 11/30/2005 SOCIAL HISTORY: Social History Tobacco Use Smoking status: Never Smokeless tobacco: Never Substance Use Topics Alcohol use: No FAMILY HISTORY: Family History Problem Relation Name Age of Onset Other (Other: Other) Mother heart problem Other (Other: congenital heart disease) Father Other (Other: tuberculosis) Father ACTIVE MEDICATIONS: Outpatient Medications Marked as Taking for the 12/03/24 encounter (Office Visit) with RONAN Valero Medication Sig Dispense Refill oxyCODONE-acetaminophen (PERCOCET) 5-325 mg per tablet Take 1 tablet by mouth 2 (two) times a day. Max Daily Amount: 2 tablets 56 tablet 0 ALLERGIES: @ALL@ PHYSICAL EXAM: Visit Vitals BP (!) 140/78 Pulse 90 Ht 1.575 m (62 ) Wt 62.1 kg (137 lb) BMI 25.06 kg/m?? Smoking Status Never BSA 1.63 m?? APPEARANCE: Alert and in no acute distress EYES: PERRLA, conjunctiva and sclera normal. MOUTH/THROAT: no erythema or exudates NECK: Neck supple, no adenopathy HEART: RRR with normal S1 and S2, no murmurs appreciated LUNG: clear to auscultation LYMPH NODES: grossly normal ABDOMEN: Soft, nontender, normal active bowel sounds throughout, no organomegaly RECTAL: Exam deferred. EXTREMITIES: Extremities warm and well perfused SKIN: Skin color, texture, turgor normal. LABS: No results found for: WBC , HGB , HCT , MCV , PLT , NA , K , CL , CO2 , GLUCOSE , BUN , CREATININE , CALCIUM , PROT , ALBUMIN , BILITOT , AST , ALT , URICACID , PHOS , MG , ALKPHOS , EGFR No results found for: SEDRATE , CRP , IRON , FERRITIN , CDIFFTOX , HPYLORI , STOOLCX , LIPASE , APTT , PT , INR , CELIAC , TTGIGA , GLIADINIGA , OCCULTBLD , CALPROTECTIN IMAGING: RADIOLOGIC EXAM CHEST 2 VIEWS HISTORY: chronic cough hx of asbestos exposure TECHNIQUE: PA and lateral radiographs of the chest COMPARISON: None FINDINGS: There is a normal cardiomediastinal silhouette. The lungs are clear. The osseous structures are intact. IMPRESSION: IMPRESSION: No acute cardiopulmonary process. IMPRESSION: 1. Eosinophilic esophagitis 2. Dysphagia, unspecified type PLAN: 1. History of eosinophilic esophagitis, dysphagia, dry cough Patient states that he had an endoscopy or fiberoptic study a number of years ago and was told thathe had eosinophilic esophagitis and he was only taking Protonix with no further evaluation of his symptoms Patient states that he is now having more issues with swallowing that he feels food getting stuck in his upper esophagus and finds that he has to vomit to get the food up out of his esophagus becausehe cannot breathe. Patient is to be scheduled for a barium swallow for further evaluation and may also need an endoscopy at some point. Cough-patient states that he has had this dry cough for couple of months and now is going to be scheduled to see pulmonology. He has tried to take Protonix but has not found to have any relief. Patient to let us know what pulmonology has to say about his cough. Patient did undergo a colonoscopy in February 2024 with a 14 mm polyp removed from the sigmoid colon with a suggested 3-year repeat Total time of today's encounter is 35 minutes in preparing to see the patient, reviewing labs, diagnostic studies as well as other provider notes, documenting in charting, creating an HPI, performinga medically appropriate exam, counseling patient at length in regards to dysphagia, dry cough, remote history of EOE, GERD There was documentation in EMR after visit. None of which time was spent performing separately billable procedures or ancillary services. Much appreciation for allowing us to participate in patient's care Orders Placed This Encounter Procedures XR Esophagram ADDITIONAL ORDERS: AMB REFERRAL TO GASTROENTEROLOGY XR ESOPHAGRAM RONAN Valero documented in this encounter Plan of Treatment Upcoming Encounters Date Type Department Care Team (Late st Contact Info) Description 12/31/2024 2:30 PM EDT Ancillary Procedure Pulmonol - [address] [place] [phone] Mariella Rosenberg 02/18/2025 8:00 AM EDT Office Visit Adult Medicine [facility] [address] [place] [phone] Katarzyna Oliver PA [address] [place] [phone] Scheduled Orders Name Type Priority Associated Diagnoses Orde r Schedule XR Esophagram Imaging Routine Dysphagia, unspecified type Eosinophilic esophagitis Expected: 12/03/2024, Expires: 12/03/2025 documented as of this encounter Visit Diagnoses Diagnosis Eosinophilic esophagitis- Primary Dysphagia, unspecified type documented in this encounter Discontinued Medications Medication Sig Discontinue Reason Start Date End Da te econazole nitrate 1 % cream Apply thin layer to feet twice daily for 4-6 weeks 11/06/2023 12/03/2024 pantoprazole (PROTONIX) 40 mg EC tablet Take 1 tablet (40 mg total) by mouth. 03/29/2024 12/03/2024 terbinafine (LamISIL) 250 mg tablet Take 1 tablet (250 mg total) by mouth 1 (one) time each day. 11/06/2023 12/03/2024 documented as of this encounter Orders Outpatient Referral Count Last Ordered Date Fir st Ordered Date AMB REFERRAL TO GASTROENTEROLOGY 1 12/04/19 documented in this encounter Care Teams Accounting Office Manager Relationship Specialty Start Date End Date Pierre Doherty MD [address] [place] [address] PCP - General Internal Medicine 04/14/20 documented as of this encounter
== END 2024-12-03 16:05 | disposition home or self-care (01) ==
LOC: HO.HSMS 15:00
PROVIDERS: Visit Provider Nurse Practitioner Family
DX: G44.309 Post-traumatic headache, unspecified, not intractable (principal); G43.009 Migraine without aura, not intractable, without status migrainosus; R42 Dizziness and giddiness
CPT/HCPCS: 99214

== ENCOUNTER → 2024-12-03 15:00 | Outpatient (BNVA) | payer OTHER, SELFPAY | PROVIDERS: Visit Provider Nurse Practitioner Family | DX: G44.309 Post-traumatic headache, unspecified, not intractable (principal); G43.009 Migraine without aura, not intractable, without status migrainosus; R42 Dizziness and giddiness; Z79.899 Other long term (current) drug therapy | CPT/HCPCS: 99212 ==

== ENCOUNTER 2025-06-03 15:13 | Outpatient (AMB) | payer OTHER, SELFPAY ==
--- OUTSIDE RECORDS SUMMARY | 2025-05-30 07:45 | XMS_ITS | Encounter Summary ---
Author Organization [facility] Address [address] [place] [address] Care Team Providers Care Senior Contract Specialist Name Role Phone Pierre Doherty MD Primary Care Provider [phone] Reason for Referral * Imaging (Routine) - Pending Review Specialty Diagnoses / Procedures Referred By Latrice bedoya Referred To Contact Radiology Diagnoses Right wrist pain Procedures US Extremity Nonvascular Limited Right Katarzyna Oliver PA [address] [place] [address] Phone: tel: fax: [address] Phone: tel: Referral ID Status Reason Start Date Expiration Date V isits Requested Visits Authorized [id number] Pending Review 05/23/2025 05/23/2026 1 1 Reason for Visit * Imaging (Routine) - Pending Review Specialty Diagnoses / Procedures Referred By Latrice bedoya Referred To Contact Radiology Diagnoses Right wrist pain Procedures US Extremity Nonvascular Limited Right Katarzyna Oliver PA [address] [place] [address] Phone: tel: fax: [address] Phone: tel: Referral ID Status Reason Start Date Expiration Date V isits Requested Visits Authorized [id number] Pending Review 05/23/2025 05/23/2026 1 1 Encounter Details Date Type Department Care Team (Latest Contact Info) Description 05/30/2025 7:45 AM EDT - 05/30/2025 11:59 PM EDT Hospital Encounter Radiology Department - [address] [phone] Right wrist pain Discharge Disposition: Home or Self Care Social History Tobacco Use Types Packs/Day Years Used Date Smoking Tobacco: Never Smokeless Tobacco: Never Alcohol Use Standard Drinks/Week Comments No 0 (1 standard drink = 0.6 oz pur e alcohol) Interpersonal Safety Answer Date Record ed Physical Abuse 03/07/2025 Verbal Abuse 03/07/2025 Sex and Gender Information Value Date Recorded Sex Assigned at Male 12/12/2024 1:16 PM EDT Legal Sex Male 10:27 PM EST Gender Identity Male 12/12/2024 1:16 PM EDT Sexual Orientation Straight 12/12/2024 1: 16 PM EDT documented as of this encounter Medications at Time of Discharge diclofenac (VOLTAREN) 1 % topical gel Apply 4 gram four times daily to affected joint 100 g 03/07/2025 omeprazole (PriLOSEC) [address] capsule Take 1 capsule (40 mg total) by mouth 2 (two) times a day. Do not crush or chew. 180 each 03/12/2025 06/10/2025 oxyCODONE-acetam inophen (PERCOCET) 5-325 mg per tablet Take 1 tablet by mouth 2 (two) times a day. Max Daily Amount: 2 tablets 56 tablet 05/05/2025 06/02/2025 documented as of this encounter Discharge Disposition Disposition Code Departure Means Destination Home or Self Care documented in this encounter Plan of Treatment Upcoming Encounters Date Type Department Care Team (Late st Contact Info) Description 09/04/2025 9:40 AM EST Office Visit Gastroenterology - [facility] [address] [place] [address] RoyceMarcos DO [address] [place] [phone] documented as of this encounter Procedures Procedure Name Priority Date/Time Associated Diagnosis Comments US EXTREMITY NONVASCULAR LIMITED RIGHT Routine 05/30/2025 7:59 AM EDT Right wrist pain documented in this encounter Results * US Extremity Nonvascular Limited Right (05/30/2025 7:59 AM EDT) Anatomical Region Laterality Modality Extremity Right Ultrasound 05/30/2025 11:3 5 AM EDT Impressions 05/30/2025 11:37 AM EDT No sonographic abnormality in the area of right wrist pain. POS - [id number] -------- FINAL REPORT -------- Dictated By: Jenn Dunaway Dictated Date: 05/30/2025 11:35 ET Assigned Physician: Jenn Dunaway Reviewed and Electronically Signed By: Jenn Dunaway Signed Date: 05/30/2025 11:37 ET Workstation ID: [id number] Transcribed By: Self Edit Transcribed Date: 05/30/2025 11:35 ET Narrative 05/30/2025 11:37 AM EDT EXAM: Ultrasound extremity nonvascular, limited HISTORY: Right wrist pain after having IV placed for upper endoscopy. Numbness and tingling in thumb. COMPARISON: None FINDINGS: Area of pain delineated by the patient at the right wrist. Sonography shows no solid or cystic lesion or fluid collection. Procedure Note Jenn Dunaway MD - 05/30/2025 EXAM: Ultrasound extremity nonvascular, limited HISTORY: Right wrist pain after having IV placed for upper endoscopy.Numbness and tingling in thumb. COMPARISON: None FINDINGS: Area of pain delineated by the patient at the right wrist. Sonographyshows no solid or cystic lesion or fluid collection. IMPRESSION: No sonographic abnormality in the area of right wrist pain. POS - [id number] -------- FINAL REPORT -------- Dictated By: Jenn Dunaway Dictated Date: 05/30/2025 11:35 ET Assigned Physician: Jenn Dunaway Reviewed and Electronically Signed By: Jenn Dunaway Signed Date: 05/30/2025 11:37 ET Workstation ID: [id number] Transcribed By: Self Edit Transcribed Date: 05/30/2025 11:35 ET us Katarzyna FERRARO IMG US PROCEDURES Final Result documented in this encounter Visit Diagnoses Diagnosis Right wrist pain Pain in joint, forearm documented in this encounter Care Teams Senior Contract Specialist Relationship Specialty Start Date End Date Pierre Doherty MD [address] [place] [phone] PCP - General Internal Medicine 04/14/20 documented as of this encounter
--- NOTE | 2025-06-03 15:32 | MHC.OFFVIS ---
Vital Signs 06/03/25 15:33 Height 5 ft 2 in Weight 141 lb BMI 25.8 BP 150/100 H Blood Pressure Location Rt brachial Position Sitting Pulse 80 Pulse Source Pulse Oximeter Pulse Oximetry (%) 97 Oxygen Delivery Method Room Air Intake Visit Reasons: 6mon follow-up Intake Note: Patient presents follow up post-concussion headache medication Knitter Hand Required: No Accompanied by: Self / Same As Patient Allergies Sulfa (Sulfonamide Antibiotics) Allergy (Mild, Verified 06/03/25 15:37) Unknown Medication List - Last Reconciled 06/03/25 by FABIÁN Ace amitriptyline 75 mg (3 x 25 mg) PO BEDTIME 30 days baclofen 10 mg PO BEDTIME 30 days magnesium oxide 400 mg PO BEDTIME 30 days melatonin 3 mg PO DAILY 30 days propranolol ER 60 mg PO BEDTIME 30 days riboflavin (vitamin B2) 400 mg PO DAILY 30 days sumatriptan succinate take 1 tab at onset of headache; if no relief, may repeat 1 tab after at least 2 hrs; max = 2 tabs/24 hrs PO 30 days HPI Comments Details: 60-yr-old male presents for f/u visit of work-related postconccusive syndrome. Pt denies any significant interval medical changes. Today he is most concerned about worsening bilateral tinnitus hand signs of hearing difficulties-needing higher TV volume, having to ask people to repeat themselves. He states that jaw and neck movements do not effect the tinnitus. Pt reports he have constant pressure holocranial headache a/w photophobia, nausea, ringing in the ear. If he bends over and gets up quickly or stands quickly, he has not right in space dizziness. His blood pressure is again elevated 150/100. He states his blood pressure at home in the morning is normotensive. Continues to have neck stiffness, which makes it difficult to turn his head left or right when driving his own vehicle. He has nonradiating a left greater than right neck pain upon cervical extension. He is doing the PT exercises at home. He continues to have poor fragmented sleep, sleeps 2 hrs on and off, and then is exhausted throughout the day. He has not returned to work- states he was let go from his position. He was working for the [employer] for the town [employer]. [facility] Surgical History Hx of removal of cyst Family History Mother No problems noted. Father No problems noted. Social History Household Members: Spouse Alcohol intake: never Patient Tobacco Use Status: Never used Tobacco Physical Exam Vital Signs: Last Vital Signs Pulse 80 06/03/25 15:33 BP 150/100 H 06/03/25 15:33 Pulse Ox 97 06/03/25 15:33 Oxygen Delivery Method Room Air 06/03/25 15:33 BMI result Body Mass Index 25.8 Const General: cooperative and no acute distress Orientation/consciousness: patient oriented x3 Resp Effort & Inspection: normal respiratory effort and able to speak in complete sentences Neuro Other: Bilateral posterior paraspinal cervical and right SCM tightness. Limited cervical ROM. General: patient oriented x3 Cranial nerves: Yes CN's II-XII intact bilaterally Cognition (Neuro): normal cognition Motor exam (neuro): 5/5 motor strength present throughout Psych Appearance: grossly normal Mental Status: mental status grossly normal Speech and movement: Normal speech and movement present Affect: normal affect Attitude: cooperative Assessment & Plan Assessment & Plan (1) Post-concussion headache: Comment: status-post work related head injury on Aug 31 2021. Code(s): G44.309 - Post-traumatic headache, unspecified, not intractable Category: Medical (2) Migraine without aura: Comment: post-concussive Code(s): G43.009 - Migraine without aura, not intractable, without status migrainosus Category: Medical Qualifiers: Status migrainosus presence: without status migrainosus Intractability: not intractable Qualified Code(s): G43.009 - Migraine without aura, not intractable, without status migrainosus (3) Vertigo: Code(s): R42 - Dizziness and giddiness Category: Medical (4) Tinnitus: Code(s): H93.19 - Tinnitus, unspecified ear Category: Medical Plan For postconcussive migraine headache prevention: Continue Vitamin B2 400mg daily in the morning. Continue Magnesium 400mg daily at bedtime. Continue Amitriptyline 75mg daily at bedtime- for sleep as well, has dry mouth. Discontinue Propranolol ER 60mg daily at bedtime-not effective. And increase to propranolol ER 80 mg daily at bedtime- may help BP control as well. Instructed to check BP at home b.i.d. Potential side effects include but are not limited to fatigue, lightheadedness, low blood pressure, low heart rate, asthma/respiratory disease exacerbation, weight gain, hair loss, sexual dysfunction. Previous preventative he trials: Topiramate not effective. For acute treatment of post-concussive migraine treatment: Continue Sumatriptan 100mg tab, 1/2 - 1 tab (50-100mg) at onset of migraine headache, may repeat in 2 hours. Max of 2 tabs (200mg) per 24 hours. May take sumatriptan with OTC Tylenol 650-1,000mg every 4-6 hours, Ibuprofen (liquid gels) 600mg every 6 hours, or Naproxen (liquid gels) 440mg q 12 hrs prn. For neck tightness: Patient continues to have cervical neck pain and stiffness which limited cervical range of motion and functional activities of daily living, without focal neurological deficits. Continue Baclofen 10mg daily at bedtime. Continue home PT exercises. Heat packs- 20 minutes prn. Future considerations: c-spine imaging w/ flexion and extension. For postconcussive dizziness: Advised stand slowly. Drink fluids liberally, including 1-2 servings of electrolyte replacement beverages. Goal is at least 64 oz per day. For hearing difficulties: We will initiate a referral to audiology, as patient does not currently have a PCP. Advised that this would be processed through his primary health insurance, and not work comp. 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 f/u in 6 months or sooner as needed. Orders: Referrals Audiology Referral H91.93 - Unspecified hearing loss, bilateral, H93.19 - Tinnitus, unspecified ear Medications: New propranolol ER (Inderal LA) work-comp 80 mg PO BEDTIME 30 caps 6RF 30 days G43.009 - Migraine without aura, not intractable, without status migrainosus, G44.309 - Post-traumatic headache, unspecified, not intractable Changed From amitriptyline 75 mg (3 x 25 mg) PO BEDTIME 30 days 90 tabs 6RF To amitriptyline work-comp 75 mg (3 x 25 mg) PO BEDTIME 90 tabs 6RF 30 days From magnesium oxide may hold for loose stools 400 mg PO BEDTIME 30 days 30 tabs 6RF To magnesium oxide may hold for loose stools. work-comp 400 mg PO BEDTIME 30 tabs 6RF 30 days From baclofen 10 mg PO BEDTIME 30 days 30 tabs 6RF To baclofen work-comp 10 mg PO BEDTIME 30 tabs 6RF 30 days From melatonin in the evening 3 mg PO DAILY 30 days 30 tabs 6RF To melatonin in the evening. work-comp 3 mg PO DAILY 30 tabs 6RF 30 days Discontinued propranolol ER Discontinued Reason: Doctor's Order 60 mg PO BEDTIME 30 days 30 caps 6RF G43.009 - Migraine without aura, not intractable, without status migrainosus, G44.309 - Post-traumatic headache, unspecified, not intractable Coding Level of Care Code Est Pt Level 4 (12737) Diagnoses Post-concussion headache G44.309 Migraine without aura and without status migrainosus, not intractable G43.009 Status migrainosus presence: without status migrainosus Intractability: not intractable Vertigo R42 Tinnitus H93.19
[2025-06-03 15:33] VITALS: BP 150/100; PULSE 80; O2SAT 97; BMI 25.8
--- OUTSIDE RECORDS SUMMARY | 2025-06-03 17:35 | XMS_ITS ---
Author Name [facility] Organization Unknown Care Team Organization Name Specialty Phone Email Start Date End Da te [facility] ROSIO QUESADA Primary Care 01/30/2023 4
--- OUTSIDE RECORDS SUMMARY | 2025-06-03 17:35 | XMS_ITS | Clinical Summary ---
Author Organization [address] Address [address] [place] [phone] Phone Care Team Providers Care Binding Dyer Name Role Phone Pierre Doherty MD Primary Care Provider [phone] Allergies Active Allergy Reactions Criticality Noted Date Comments Sulfacetamide Sodium 11/03/2005 Other Reaction(s): OTHER told by his mother he was allergic to sulfa Medications diclofenac (VOLTAREN) 1 % topical gel Apply 4 gram four times daily to affected joint 100 g 5 Active omeprazole (PriLOSEC) [address] capsule Take 1 capsule (40 mg total) by mouth 2 (two) times a day. Do not crush or chew. 180 each 5 06/10/20 25 Active oxyCODONE-aceta minophen (PERCOCET) 5-325 mg per tablet Take 1 tablet by mouth 2 (two) times a day. Max Daily Amount: 2 tablets 56 tablet 5 Active oxyCODONE-aceta minophen (PERCOCET) 5-325 mg per tablet Take 1 tablet by mouth 2 (two) times a day. Max Daily Amount: 2 tablets 56 tablet 5 05/05/20 25 Discontinu ed(Reorder ) oxyCODONE-aceta minophen (PERCOCET) 5-325 mg per tablet Take 1 tablet by mouth 2 (two) times a day. Max Daily Amount: 2 tablets 56 tablet 5 06/02/20 25 Discontinu ed(Reorder ) Active Problems Problem Noted Date Diagnosed Date Knee pain 06/03/2008 Overview (11/16/2023): WC related injury in November 2006. Eosinophilic esophagitis 06/14/2007 Overview (11/16/2023): EGD + BX 06/01/2007. 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 11/30/2005 Overview (11/16/2023): IMO update Encounters Date Type Department Care Team Description 05/30/2025 7:45 AM EDT - 05/30/2025 11:59 PM EDT Hospital Encounter Radiology Department [address] [phone] Right wrist pain Discharge Disposition: Home or Self Care 05/23/2025 9:30 AM EDT Office Visit Adult Medicine [address] [phone] Katarzyna Oliver PA Right wrist pain (Primary Dx) 04/28/2025 Telephone Gastroenterology - [place] 175 [facility] [address] [phone] Sunil Crane DO 03/12/2025 Telephone Gastroenterology - [place] 175 [facility] [address] [phone] Sunil Crane DO 03/07/2025 3:35 PM EDT Anesthesia Event [facility] Endoscopy [address] [place] [phone] Polo Mcmillan MD Korobkov, Vitaliy, DO 03/07/2025 3:11 PM EDT - 03/07/2025 11:59 PM EDT Hospital Encounter [facility] Endoscopy [address] [place] [phone] Sunil Crane DO Barnes, Tyanna R, Polo Copeland MD Eosinophilic esophagitis Discharge Disposition: Home or Self Care 03/07/2025 8:00 AM EDT Office Visit Adult Medicine [address] [phone] Katarzyna Oliver PA Encounter for long-term (current) use of medications (Primary Dx); Chronic pain of left knee; Eosinophilic esophagitis from Last 3 Months Surgical History Surgery Date Site/Laterality Comments TONSILLECTOMY PROCEDURE: HISTORICAL TONSILLECTOMY ESOPHAGOGASTRODUODENOSCOPY 05/31/2007 PROCEDURE: ID EGD TRANSORAL BIOPSY SINGLE/MULTIPLE; COMMENT: eosiniphilic esophagitis. 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 Knee pain 06/03/2008 DX:Knee pain; CO MMENT: WC related injury in November 2006. Colon polyp DX:Colon polyp Dysphagia DX:Dysphagia Cough DX:Cough GERD (gastroesophageal reflux disease) Family History Medical History Relation Name Comments [...] Orientation Straight 12/12/2024 1: 16 PM EDT Obstetrics History Last Filed Vital Signs Vital Sign Reading Time Taken Comments Blood Pressure 118/60 05/23/2025 9:41 AM EDT Pulse 92 05/23/2025 9:41 AM EDT Temperature 36.1 C (97 F) 05/23/2025 9:41 AM EDT Respiratory Rate 14 05/23/2025 9:41 AM EDT Oxygen Saturation 97% 05/23/2025 9:41 AM EDT Inhaled Oxygen Concentration - - Weight 63 kg (139 lb) 05/23/2025 9:41 AM EDT Height 157.5 cm (5' 2 ) 05/23/2025 9:41 AM EDT Body Mass Index 25.42 05/23/2025 9:41 AM EDT Plan of Treatment Upcoming Encounters Date Type Department Care Team (Late st Contact Info) Description 09/04/2025 9:40 AM EST Office Visit Gastroenterology - [place] [address] [facility] [address] [place] [phone] [facility] [address] [phone] Health Maintenance Due Date Last Done Comments DTaP,Tdap,and Td Vaccines (1 - Tdap) 1984 Pneumococcal Vaccine: 50+ Years (1 of 1 - PCV) 2015 Zoster Vaccines (1 of 2) 2015 HIV Screening 09/03/2022 Social Influencers of Health Screening 09/03/2022 Depression Screening 09/25/2024 COVID-19 Vaccine ( - 2023-2 5 season) 2025 Influenza Vaccine (#1) 2025 Colorectal Cancer Screening: Colonoscopy 03/12/2027 03/12/2024 Cholesterol Screening (Lipid Panel) 03/10/2030 03/10/2025, 03/26/2024, 06/12/2023 RSV Immunization Adult Patients (1 - 1-dose 75+ series) 2040 Hepatitis C Screening Completed 10/12/2018 HIB Vaccines Aged Out No longer eligi ble based on patient's age to complete this topic HPV Vaccines Aged Out No longer eligi ble based on patient's age to complete this topic Hepatitis A Vaccines Aged Out No long er eligible based on patient's age to complete this topic Hepatitis B Vaccines Aged Out No long er eligible [...] age to complete this topic Meningococcal B Vaccine Aged Out No l onger eligible based on patient's age to complete [...] 05/30/2025 7:59 AM EDT Right wrist pain LIPID PANEL WITH REFLEX TO DIRECT LDL Routine 03/10/2025 8:25 AM EDT Elevated LDL cholesterol level DRUG ABUSE SCREEN 8A PANEL, URINE Routine 03/10/2025 8:25 AM EDT Encounter for long-term (current) use of medications Chronic pain of left knee EGD Routine 03/07/2025 3:47 PM EDT Eosinophilic esophagitis TISSUE EXAM Routine 03/07/2025 3:44 PM EDT Eosinophilic esophagitis HEPATITIS C SCREENING Routine 10/12/2018 from Last 3 Months or Most Recently Relevant to Health Maintenance Results * US Extremity Nonvascular Limited Right (05/30/2025 7:59 AM EDT) Anatomical Region Laterality Modality Extremity Right Ultrasound 05/30/2025 11:3 5 AM EDT Impressions 05/30/2025 11:37 AM EDT No sonographic abnormality in the area of right wrist pain. POS - [id number] -------- FINAL REPORT -------- Dictated By: Jenn Dunaway Dictated Date: 05/30/2025 11:35 ET Assigned Physician: Jenn Dunaway Reviewed and Electronically Signed By: Jenn Dunaway Signed Date: 05/30/2025 11:37 ET Workstation ID: [id number] Transcribed By: Self Edit Transcribed Date: 05/30/2025 [...] area of right wrist pain. POS - [id number] -------- FINAL REPORT -------- Dictated By: Jenn Dunaway Dictated Date: 05/30/2025 11:35 ET Assigned Physician: Jenn Dunaway Reviewed and Electronically Signed By: Jenn Dunaway Signed Date: 05/30/2025 11:37 ET Workstation ID: [id number] Transcribed By: Self Edit Transcribed Date: 05/30/2025 11:35 ET Katarzyna FERRARO Kaylen US PROCEDURES Final Result * (ABNORMAL) Lipid panel with reflex to direct LDL (03/10/2025 8:25 AM EDT) Cholesterol 219(H) 0 - 200 mg/dL LAB CHEMISTRY METHOD 03/10/2025 10:23 AM EDT [facility] Triglycerides 84 0 - 150 mg/dL LAB CHEMISTRY METHOD 03/10/2025 10:23 AM EDT [facility] HDL 53 >=40 mg/dL LAB CHEMISTRY METHOD 03/10/2025 10:23 AM T [facility] LDL Calculated 149(H) 0 - 100 mg/dL LAB CHEMISTRY METHOD 03/10/2025 10:23 AM EDT [facility] VLDL Cholesterol Royce 16.8 mg/dL LAB CHEMISTRY METHOD 03/10/2025 10:23 AM EDT [facility] Non HDL Chol. (LDL+VLDL) 166(H) <145 mg/dL LAB CHEMISTRY METHOD 03/10/2025 10:23 AM EDT [facility] Chol/HDL Ratio 4.1 0.0 - 4.4 LAB CHEMISTRY METHOD 03/10/2025 10:23 AM T [facility] Blood Venous blood specimen / Unknown Venipuncture / Unknown 03/10/2025 8:25 AM EDT 03/10/2025 8:25 AM EDT us Pierre Doherty MD LAB BLOOD ORDERABLES Final Resu lt [facility] [address] [place] [address], * (ABNORMAL) Drug abuse screen 8a panel, urine (03/10/2025 8:25 AM EDT) Amphetamine Screen, Ur Negative Negative LAB CHEMISTRY METHOD 11:33 AM EDT [facility] Comment:Certain OTC medicati ons containing ephedrine, phenylephrine, pseudoephedrine and phenylpropanolamine can cause false positive results. Barbiturate Screen, Ur Negative Negative LAB CHEMISTRY METHOD 5 11:33 AM EDT [facility] Benzodiazepine Screen, Ur Negative Negative LAB CHEMISTRY METHOD 5 11:33 AM EDT [facility] Cocaine Screen, Ur Negative Negative LAB CHEMISTRY METHOD 5 11:33 AM EDT [facility] Opiate Screen, Ur Positive(A ) Negative LAB CHEMISTRY METHOD 5 11:33 AM EDT [facility] Cannabinoid (THC) Screen, Ur Negative Negative LAB CHEMISTRY METHOD 5 11:33 AM EDT [facility] Comment:Specimens from patie nts taking pantoprazole sodium (Protonix) have been shown to produce false positive results. Oxycodone Screen, Ur Positive(A ) Negative LAB CHEMISTRY METHOD 5 11:33 AM EDT [facility] Fentanyl, Ur Negative Negative LAB CHEMISTRY METHOD 5 11:33 AM T [facility] Urine Urine specimen obtained by clean catch procedure / Unknown Non-blood Collection / Unknown 03/10/2025 8:25 AM EDT 03/10/2025 8:25 AM EDT Narrative [facility] - 03/10/2025 11:33 AM EDT Assay cutoffs: Amphetamines 1000 ng/mL Barbiturates 200 ng/mL Benzodiazepines 200 ng/mL Cocaine 300 ng/mL Fentanyl 1 ng/mL Opiates 300 ng/mL Oxycodone 100 ng/mL THC 50 ng/mL Semi-quantitative assay for screening purposes only. Unconfirmed screening result should not be used for non-medical purposes. *ALTERNATE METHOD CONFIRMATION DONE UPON REQUEST ONLY* us Katarzyna FERRARO LAB URINE ORDERABLES Fi nal Result [facility] [address] [place] [address], * EGD Anesthesia - [facility]; [facility] ENDOSCOPY (03/07/2025 3:47 PM EDT) Anatomical Region Laterality Modality Endoscopy 03/07/2025 3:35 PM EDT Impressions 03/07/2025 3:47 PM EDT - Normal examined duodenum. - Normal stomach. - Esophageal mucosal changes consistent with eosinophilic esophagitis. Biopsied. Dilated. Recommendation: - Discharge patient to home. - Full liquid diet today. - Continue present medications. - Continue with PPI BID. - Await pathology results. Narrative 03/07/2025 3:47 PM EDT [facility] GI Patient Name: Indra Sandra Procedure Date: 03/07/2025 3:35 PM Date of : 1965 Age: 59 Gender: Male Note Status: Finalized Attending MD: Sunil Crane DO, [id number] Procedure Date No Time: 03/07/2025 Procedure: Upper GI endoscopy Indications: Eosinophilic esophagitis Providers: Sunil Crane DO Referring MD: Pierre Doherty MD Medicines: Monitored Anesthesia Care Complications: No immediate complications. Estimated blood loss: Minimal. Estimated Blood Loss: Estimated blood loss was minimal. Procedure: Pre-Anesthesia Assessment: - - Prior to the procedure, a History and Physical was performed, and patient medications and allergies were reviewed. The patient is competent. The risks and benefits of the procedure and the sedation options and risks were discussed with the patient. All questions were answered and informed consent was obtained. Patient identification and proposed procedure were verified by the physician, the nurse, the anesthesiologist, the paraffin plant operator and the automated equipment engineer technician in the pre-procedure area in the endoscopy suite. Mental Status Examination: alert and oriented. Airway Examination: normal oropharyngeal airway and neck mobility. Respiratory Examination: clear to auscultation. CV Examination: normal. Prophylactic Antibiotics: The patient does not require prophylactic antibiotics. Prior Anticoagulants: The patient has taken no anticoagulant or antiplatelet agents. ASA Grade Assessment: II - A patient with severe systemic disease. After reviewing the risks and benefits, the patient was deemed in satisfactory condition to undergo the procedure. The anesthesia plan was to use monitored anesthesia care (MAC). Immediately prior to administration of medications, the patient was re-assessed for adequacy to receive sedatives. The heart rate, respiratory rate, oxygen saturations, blood pressure, adequacy of pulmonary ventilation, and response to care were monitored throughout the procedure. The physical status of the patient was re-assessed after the procedure. After obtaining informed consent, the endoscope was passed under direct vision. Throughout the procedure, the patient's blood pressure, pulse, and oxygen saturations were monitored continuously. The Olympus Gastroscope was introduced through the mouth, and advanced to the third part of duodenum. The upper GI endoscopy was accomplished without difficulty. The patient tolerated the procedure well. Findings: The examined duodenum was normal. The stomach was normal. Mucosal changes including longitudinal furrows and stenosis were found in the distal esophagus. Esophageal findings were graded using the Eosinophilic Esophagitis Endoscopic Reference Score (EoE-EREFS) as: Edema Grade 0 Normal (distinct vascular markings), Rings Grade 1 Mild (subtle circumferential ridges seen on esophageal distension), Exudates Grade 0 None (no white lesions seen), Furrows Grade 1 Mild (vertical lines without visible depth) and Stricture present (12 mm luminal diameter). Biopsies were taken with a cold forceps for histology. A TTS dilator was passed through the scope. Dilation with a 15-16.5-18 mm balloon dilator was performed to 15 mm. The dilation site was examined following endoscope reinsertion and showed moderate improvement in luminal narrowing. Estimated blood loss was minimal. Procedure Code(s): --- Professional --- 09856, Esophagogastroduodenoscopy, flexible, transoral; with transendoscopic balloon dilation of esophagus (less than 30 mm diameter) 54414, 59, Esophagogastroduodenoscopy, flexible, transoral; with biopsy, single or multiple Diagnosis Code(s): --- Professional --- K22.89, Other specified disease of esophagus K20.0, Eosinophilic esophagitis CPT copyright 2020 [employer]. All rights reserved. The codes documented in this report are preliminary and upon medical records coder review may be revised to meet current compliance requirements. SUNIL Crane DO 03/07/2025 3:47:44 PM This report has been signed electronically.Sunil Crane DO Number of Addenda: 0 Note Initiated On: 03/07/2025 3:35 PM Scope In: Scope Out: Endoscopy Department at [facility] - [address] [place] [phone] Procedure Note Sunil Crane DO - 03/07/2025 [facility] GI Patient Name: Indra Sandra Procedure Date: 03/07/2025 3:35 PM Date of : 1965 Age: 59 Gender: Male Note Status: Finalized Attending MD: Sunil Crane DO, [id number] Procedure Date No Time: 03/07/2025 Procedure: Upper GI endoscopy Indications: Eosinophilic esophagitis Providers: Sunil Crane DO Referring MD: Pierre Doherty MD Medicines: Monitored Anesthesia Care Complications: No immediate complications. Estimated blood loss: Minimal. Estimated Blood Loss: Estimated blood loss was minimal. Procedure: Pre-Anesthesia Assessment: - - Prior to the procedure, a History and Physicalwas performed, and patient medications and allergieswere reviewed. The patient is competent. The risks and benefits of the procedure and the sedation optionsand risks were discussed with the patient. Allquestions were answered and informed consent was obtained. Patient identification and proposed procedure were verified by the physician, the nurse, the anesthesiologist, the paraffin plant operator and thetechnician in the pre-procedure area in the endoscopy suite. Mental Status Examination: alert and oriented.Airway Examination: normal oropharyngeal airway and neck mobility. Respiratory Examination: clear to auscultation. CV Examination: normal. Prophylactic Antibiotics: The patient does not requireprophylactic antibiotics. Prior Anticoagulants: The patient has taken no anticoagulant or antiplatelet agents. ASA Grade Assessment: II - A patient with severesystemic disease. After reviewing the risks and benefits,the patient was deemed in satisfactory condition to undergo the procedure. The anesthesia plan was touse monitored anesthesia care (MAC). Immediately priorto administration of medications, the patient was re-assessed for adequacy to receive sedatives. The heart rate, respiratory rate, oxygen saturations, blood pressure, adequacy of pulmonary ventilation,and response to care were monitored throughout the procedure. The physical status of the patient was re-assessed after the procedure. After obtaining informed consent, the endoscope was passed under direct vision. Throughout theprocedure, the patient's blood pressure, pulse, and oxygen saturations were monitored continuously. TheOlympus Gastroscope was introduced through the mouth, and advanced to the third part of duodenum. The upperGI endoscopy was accomplished without difficulty. The patient tolerated the procedure well. Findings: The examined duodenum was normal. The stomach was normal. Mucosal changes including longitudinal furrows and stenosis were found in the distal esophagus. Esophageal findings were graded using theEosinophilic Esophagitis Endoscopic Reference Score (EoE-EREFS)as: Edema Grade 0 Normal (distinct vascular markings), Rings Grade 1 Mild (subtle circumferential ridgesseen on esophageal distension), Exudates Grade 0 None(no white lesions seen), Furrows Grade 1 Mild (vertical lines without visible depth) and Stricture present(12 mm luminal diameter). Biopsies were taken with acold forceps for histology. A TTS dilator was passed through the scope. Dilation with a 15-16.5-18 mm balloon dilator was performed to 15 mm. Thedilation site was examined following endoscope reinsertionand showed moderate improvement in luminal narrowing. Estimated blood loss was minimal. Procedure Code(s): --- Professional --- 69234, Esophagogastroduodenoscopy, flexible, transoral; with transendoscopic balloon dilation of esophagus (less than 30 mm diameter) 27302, 59, Esophagogastroduodenoscopy, flexible, transoral; with biopsy, single or multiple Diagnosis Code(s): --- Professional --- K22.89, Other specified disease of esophagus K20.0, Eosinophilic esophagitis CPT copyright 2020 [employer]. All rights reserved. The codes documented in this report are preliminary and upon medical records coder reviewmay be revised to meet current compliance requirements. SUNIL Crane DO 03/07/2025 3:47:44 PM This report has been signed electronically.Sunil Crane DO Number of Addenda: 0 Note Initiated On: 03/07/2025 3:35 PM Scope In: Scope Out: Endoscopy Department at [facility] - [address] [place] [phone] IMPRESSION: - Normal examined duodenum. - Normal stomach. - Esophageal mucosal changes consistent with eosinophilic esophagitis. Biopsied. Dilated. Recommendation: - Discharge patient to home. - Full liquid diet today. - Continue present medications. - Continue with PPI BID. - Await pathology results. us Sunil Crane DO GI~PROCEDURE ORDERABLES Final Re sult * Tissue exam (03/07/2025 3:44 PM EDT) Final Diagnosis Distal esophagus, biopsy: - Esophageal squamous mucosa with focally numerous intraepithelial eosinophils (maximum of 45 intraepithelial eosinophils in a high power field) and prominent spongiosis. (See note.) Note: Histologic sections show esophageal squamous mucosa with prominent spongiosis throughout and variable numbers of intraepithelial eosinophils (maximum of 45 in a high power field). In the setting of appropriate clinical and endoscopic findings, the high number of intraepithelial eosinophils would support a diagnosis of eosinophilic esophagitis. However, an eosinophilic pattern of injury in the esophagus can also be seen in the setting of gastroesophageal reflux disease, or be related to certain medications/therap ies and allergic responses. Correlation with clinical and endoscopic findings is recommended. 03/11/2025 10:40 AM EDT [facility] Gross Description A. Esophagus, distal esophagus biopsies: Labeled distal esophagus . Received in formalin, are multiple irregular soft to rubbery, white-rodrigues tissue fragments, approximately ranging from 0.1 cm to 0.6 cm in greatest diameters and aggregating to 0.6 x 0.5 x 0.2 cm. The specimen is wrapped in paper and submitted in toto in one cassette, multiple pieces, multiple levels. Please note: Small tissue fragments may not survive processing. hs/DG 03/11/2025 10:40 AM EDT [facility] Disclaimer Unless otherwise specified, all tissue is 10% NB formalin fixed and paraffin embedded. 03/11/2025 10:40 AM EDT [facility] Tissue Esophageal structure / Unknown 03/07/2025 3:44 PM EDT 03/10/2025 5:45 AM EDT Sunil Crane DO LAB PATHOLOGY ORDERABLES Final R esult [facility] [address] [place] [address], * Hepatitis C Screening (10/12/2018) Hepatitis C Screening REFUSED us Historical Provider HEALTH MAINTENANCE Final Result from Last 3 Months or Most Recently Relevant to Health Maintenance Insurance [facility] [employer] Care Teams Binding Dyer Relationship Specialty Start Date End Date Pierre Doherty MD [address] [place] [phone] PCP - General Internal Medicine 04/14/20
== END 2025-06-03 16:24 | disposition home or self-care (01) ==
LOC: HO.HSMS 15:14
PROVIDERS: Visit Provider Nurse Practitioner Family
DX: G44.309 Post-traumatic headache, unspecified, not intractable (principal); G43.009 Migraine without aura, not intractable, without status migrainosus; R42 Dizziness and giddiness; H93.19 Tinnitus, unspecified ear
CPT/HCPCS: 99214

== ENCOUNTER → 2025-06-03 15:13 | Outpatient (BNVA) | payer OTHER, SELFPAY | PROVIDERS: Visit Provider Nurse Practitioner Family | DX: G44.309 Post-traumatic headache, unspecified, not intractable (principal); G43.009 Migraine without aura, not intractable, without status migrainosus; R42 Dizziness and giddiness; H93.19 Tinnitus, unspecified ear | CPT/HCPCS: 99212 ==